=== PATIENT | female | born 1955 | race Caucasian/White ===

== ENCOUNTER → 2016-10-26 | Outpatient (CLI) | payer BC ==
--- NOTE | ~2016-10-26 | ECH ---
Transthoracic Echocardiography Report (TTE) Demographics Patient Name MEAGHAN RODRIGUEZ Date of Study 10/26/2016 Patient Number [id number] Visit Number [id number] Date of 1955 Room Number Accession Number [id number] Gender Female Age 61 year(s) Referring Yumi Alvarado MD Foot Caster Rosemarie Mcgregor Physician Yovany Devine RDCS, MD Physician Interpreting [place] CLARK Freezer Assistant Physician Syed Supervising Ordering Physician Yovany Devine MD/STEPHEN CLARK Nurse Stress Supervisor Stave Cutting Conclusions Contractility Score Summary Normal Left Ventricular contractility was noted. Summary Limited exam for ejection fraction. Doppler not performed. Technically good exam. The estimated left ventricular ejection fraction is 60%. Normal appearing valves. Recommendation The patient will be given the results of this study by the physician who ordered the exam. Procedure Type of Study TTE procedure:Echo Limited SF. Procedure Date Date: 10/26/2016 Start: 09:21 AM Technical Quality: Good visualization Indications:High Risk Medication Use. Additional Indications:Chemo Appropriate Use Criteria: 9 Height: 69 inches Weight: 150 pounds BSA: 1.83 m Rhythm: NSR HR: 68 bpm BP: 90/38 mmHg M-Mode/2D Measurements LV Diastolic Dimension: 5.08 cm LV Systolic Dimension: 3.77 cm LV Septum Diastolic: 0.74 cm LV PW Diastolic: 0.69 cm AO Root Dimension: 2.67 cm LA Dimension: 2.82 cm RV Diastolic Dimension: 3.02 cm LA volume: 46.26 ml LA volume index: 25 ml/m RV Base: 3.2 cm RV Mid: 2.4 cm TAPSE: 3.3 cm Doppler Measurements RA Area: 15.32 cm Findings Left Ventricle Normal left ventricle size and function. Diastolic function not assessed. Right Ventricle Normal right ventricle structure and function. Left Atrium Normal left atrial size. Right Atrium Normal right atrial size. Mitral Valve Normal mitral valve structure and function. Aortic Valve Normal aortic valve structure and function. Tricuspid Valve Normal tricuspid valve structure and function. Pulmonic Valve Normal pulmonic valve structure and function. Pericardial Effusion No evidence of pericardial effusion. Miscellaneous Visualized portions of the aortic root and ascending aorta appear normal in size. Pleural Effusion No evidence of pleural effusion. Contractility Score LV regional wall motion:(0-Non visualized 1-Normal 2-Hypokinesis 3-Akinesis 4-Dyskinesis 5-Aneurysm) Signature
== END | disposition home or self-care (01) ==
LOC: CARD 09:00
DX: C50.411 Malignant neoplasm of upper-outer quadrant of right female breast (principal); I10 Essential (primary) hypertension